=== PATIENT | female | born 1975 | race Caucasian/White ===

== ENCOUNTER 2021-09-06 00:50 | Emergency (ER) | payer OTHER, MEDICAID, SELFPAY ==
[2021-09-06 00:52] VITALS: BP 119/95; PULSE 83; RESP 16; TEMP 36.8; O2SAT 98; BMI 49.7
--- NOTE | 2021-09-06 01:15 | CT_ITS ---
EXAM: CT Angiography Chest Without and With Intravenous Contrast CLINICAL INDICATION: 46 years old, Female; chest pain TECHNIQUE: Helically acquired angiography images were obtained of the chest without and with intravenous contrast. This CT exam was performed using one or more of the following dose reduction techniques: automated exposure control, adjustment of the mA and/or kV according to patient size, and/or use of iterative reconstruction technique. This report was created using [employer] report generation technology. MIP reconstructed images were created and reviewed. CONTRAST: IV 100mL Isovue-370 COMPARISON: None. FINDINGS: Pulmonary arteries: Unremarkable. Normal in caliber. No pulmonary embolism. Aorta: Unremarkable. Normal in caliber. No evidence of dissection. Great vessels of aortic arch: Unremarkable. Normal in caliber. No evidence of dissection. Lungs and pleural spaces: Unremarkable. No mass. No consolidation or edema. No pleural effusion or thickening. No pneumothorax. Heart: Unremarkable. Heart size is normal. No pericardial effusion. No signs of right heart strain, ratio of right ventricle to left ventricle measures less than 1. Mediastinum: Unremarkable. No mediastinal or hilar adenopathy. Esophagus is unremarkable. No hiatal hernia. Thyroid: Unremarkable. No thyroid lesions. Bones/joints: Unremarkable. No suspicious lytic or blastic abnormality. CT/CTA Chest W/WO Contrast IMPRESSION: No pulmonary embolism. Electronically Signed: Apollo Machado MD at 3:27 EDT ,
--- NOTE | 2021-09-06 01:17 | EKG12_ITS ---
Test Reason : FLANK PAIN Blood Pressure : / mmHG Vent. Rate : 070 BPM Atrial Rate : 070 BPM P-R Int : 180 ms QRS Dur : 086 ms QT Int : 440 ms P-R-T Axes : 064 047 031 degrees QTc Int : 475 ms Normal sinus rhythm Normal ECG Confirmed by SHERRIE DAHL, SHAYY ([id number]), deputy editor in chief REJI SOTO ([id number]) on 09/09/2021 11:09:13 AM Referred By: Confirmed By:SHAYY BALDERAS MD
--- NOTE | 2021-09-06 01:22 | EDS_ITS ---
HPI History of Present Illness Chief Complaint: Flank Pain Narrative Narrative: Patient is a 46-year-old female who presents ER complaining of right back/flank pain. She states that she was at work yesterday and she had a migraine and was slumping over a chair secondary to this. She states after this she noticed some pain in her right upper back. She states as time is past the migraine resolved but the pain in her back has continued to worsen. She states there has been no excessive activity or trauma. She reports that she is taken her gabapentin and Flexeril without any symptom. She states the pain is more sharp in nature and does not improve or worsen with any type of motion. She states that she now feels like the pain is radiating towards the chest and secondary to its persistent nature and the fact is not improving she presents for evaluation. [facility] Medical History Arthritis Depression with anxiety Hypertension Spondyloarthritis Home Medications buspirone mg 09/06/21 [History Last Taken Unknown] cephalexin 500 mg PO BID 5 Days #10 cap 09/06/21 [Rx Last Taken Unknown] gabapentin [Neurontin] 100 mg PO DAILY 09/06/21 [History Last Taken Unknown] losartan 09/06/21 [History Last Taken Unknown] methocarbamol 1,000 mg PO 4X/DAY PRN PRN #56 tab 09/06/21 [Rx Last Taken Unknown] Allergy/AdvReac Type Severity Reaction Status Date / Time lisinopril Allergy Chest Verified 09/06/21 01:01 tightness Social History Smoking Status: Never smoker [facility] ED Constitutional Constitutional ED: Denies chills or fever(s) ENT ENT ED: Denies sore throat Cardiovascular Cardiovascular: Reports chest pain; Denies palpitations or racing heartbeat Respiratory/Chest Respiratory/Chest: Denies cough or dyspnea Gastrointestinal Gastrointestinal: Denies abdominal pain, diarrhea, nausea or vomiting Genitourinary Genitourinary ED: Denies dysuria Musculoskeletal Musculoskeletal: Reports back pain; Denies myalgias Integumentary Denies rash Neurologic Neurologic: Denies headache(s) Hematologic/Lymphatic Hematologic/Lymphatic: Denies easy bleeding or easy bruising EXAM Physical Exam Const Vital Signs: 09/06/21 00:52 09/06/21 03:44 Temperature 98.3 F Temperature Source Oral Pulse Rate 83 Respiratory Rate 16 17 Blood Pressure 119/95 H Blood Pressure Mean 103 Pulse Ox 98 Oxygen Delivery Method Room Air Positive well nourished, well developed and obese General Appearance ED: well developed Nutritional Appearance: obese HEENT Reports moist mucous membranes Eyes PERRL and EOMs intact bilaterally Neck supple Chest Wall palpation of chest normal Resp normal respiratory effort and clear to auscultation bilaterally Cardio regular rate and regular rhythm Rate: other Other Details: Radial pulses are +2-4 bilaterally are equal and symmetric GI normal to inspection, nondistended, normoactive bowel sounds, non-tender, non- distended and no masses GI Narrative: No pulsatile mass or fluid wave Auscultation: normoactive bowel sounds Palpation: soft Back/Spine no CVA tenderness Back/Spine Narrative: No bony deformity or step-off of the thoracic or lumbar spine no midline pain with palpation. Patient reports pain in the right upper parathoracic muscle belly region but there is no reproducible pain on palpation and there is only slight spasm noted. No overlying soft tissue changes to suggest trauma or infection Extremity Extremity Narrative: Trace pitting edema to the bilateral lower extremities that is equal and symmetric with negative Homans' sign bilaterally Neuro oriented x3 and CN's II-XII intact bilaterally Sensorium / Orientation: alert Motor Exam: strength 5/5 throughout Psych mental status grossly normal Skin no rashes or lesions noted MDM MDM MDM Narrative Medical decision making narrative: Patient presented to the ER with stable vitals but complained of pain in the right upper back radiating into the chest. There is no obvious report of trauma or signs of trauma on exam and no obvious overlying soft tissue infection such as shingles or cellulitis to suggest a cause of her pain. She is not tachycardic or hypoxic her blood pressure is not hypertensive but based on location of the pain there is concerned that she could be having a pulmonary embolus or dissection or even cardiac event as the cause of her symptoms. Therefore I elected perform basic laboratory studies as well as a CTA of the chest. CTA revealed no acute pathology. Urine sample show +1 bacteria without contamination and also a few red blood cells. Based on the right sided upper pain there is concern this could be gallbladder related or even kidney stone as well so elected to add a CT scan of the abdomen and pelvis. This also showed no acute finding. On reevaluation the patient is resting comfortably and has had improvement of pain with medication. Therefore she does not have signs of urosepsis she does not have cardiac damage and we have ruled out underlying dissection and pulmonary embolus. Patient will be given a muscle relaxer as well as placed on a 5-day course of Keflex because of the bacteria in the urine but is otherwise safe for discharge Lab Data Attestation: I reviewed the patient's lab results. Labs: Laboratory Results - last 24 hr 09/06/21 09/06/21 09/06/21 01:30 01:30 01:30 WBC 8.6 RBC 4.21 Hgb 12.1 Hct 36.6 L MCV 86.9 MCH 28.7 MCHC 33.1 RDW Std Deviation 38.9 RDW Coeff of Winter 12.2 Plt Count 256 MPV 9.5 Immature Gran % (Auto) 0.500 Neut % (Auto) 57.1 Lymph % (Auto) 31.7 Griggs % (Auto) 7.6 Eos % (Auto) 2.6 Baso % (Auto) 0.5 Absolute Neuts (auto) 4.9 Absolute Lymphs (auto) 2.72 Nucleated RBC % 0 PT 12.5 INR 1.0 APTT 31.8 Sodium 138 Potassium 3.9 Chloride 107 Carbon Dioxide 26.0 Anion Gap 5 BUN 12 Creatinine 0.81 Estim Creat Clear Calc 81.24 Est GFR (MDRD) Af Amer 97 Est GFR (MDRD) Non-Af 80 BUN/Creatinine Ratio 14.7 Glucose 128 H Calcium 8.8 Total Bilirubin Direct Bilirubin AST ALT Alkaline Phosphatase Troponin I High Sens < 3 L Total Protein Albumin Globulin Urine Color Urine Clarity Urine pH Ur Specific [place] Urine Protein Urine Glucose (UA) Urine Ketones Urine Occult Blood Urine Nitrite Urine Bilirubin Urine Urobilinogen Ur Leukocyte Esterase Urine RBC Urine WBC Ur Squamous Epith Cells Urine Bacteria Urine Mucus Urine Test 09/06/21 09/06/21 01:30 01:30 WBC RBC Hgb Hct MCV MCH MCHC RDW Std Deviation RDW Coeff of Winter Plt Count MPV Immature Gran % (Auto) Neut % (Auto) Lymph % (Auto) Griggs % (Auto) Eos % (Auto) Baso % (Auto) Absolute Neuts (auto) Absolute Lymphs (auto) Nucleated RBC % PT INR APTT Sodium Potassium Chloride Carbon Dioxide Anion Gap BUN Creatinine Estim Creat Clear Calc Est GFR (MDRD) Af Amer Est GFR (MDRD) Non-Af BUN/Creatinine Ratio Glucose Calcium Total Bilirubin 0.50 Direct Bilirubin 0.09 AST 11 L ALT 20 Alkaline Phosphatase 74 Troponin I High Sens Total Protein 7.1 Albumin 3.5 Globulin 3.6 Urine Color Yellow Urine Clarity Clear Urine pH 7.0 Ur Specific [place] 1.010 Urine Protein Negative Urine Glucose (UA) Normal Urine Ketones Negative Urine Occult Blood 10 H Urine Nitrite Negative Urine Bilirubin Negative Urine Urobilinogen Normal Ur Leukocyte Esterase 100 H Urine RBC 0 SEEN Urine WBC 0-5 SEEN Ur Squamous Epith Cells 0-5 SEEN Urine Bacteria 1+ Urine Mucus 0 SEEN Urine Test Negative Radiography Diagnostic Testing: Clinical Impression(s) from Imaging Studies Chest CTA 09/06/21 01:15 IMPRESSION: No pulmonary embolism. Electronically Signed: Apollo Machado MD at 3:27 EDT , Abdomen/Pelvis CT 09/06/21 02:43 IMPRESSION: Negative CT of the abdomen and pelvis with intravenous contrast. Electronically Signed: Apollo Machado MD at 3:23 EDT , Discharge Plan Triage Chief Complaint: Flank Pain ED Provider: Morales Rashid Dx/Rx/DC Orders Clinical Impression: Acute thoracic myofascial strain, UTI (urinary tract infection) Instructions: Urinary Tract Infections in Women, ED Back Sprain/Strain Prescriptions: New cephalexin 500 mg capsule 500 mg PO BID 5 Days Qty: 10 RF: 0 methocarbamol 500 mg tablet 1,000 mg PO 4X/DAY PRN PRN (Reason: Muscle pain/spasm) Qty: 56 RF: 0 No Action losartan 50 mg tablet RF: 0 buspirone 5 mg tablet RF: 0 gabapentin [Neurontin] 100 mg capsule 100 mg PO DAILY RF: 0 Primary Care Provider: Care Physician,No Primary Referrals: Altagracia Echevarria, [STAFF PHYSICIAN] - 1 Week if not improving Care Physician,No Primary [Primary Care Provider] - Disposition Disposition: Home, Self Care Discharge Date/Time: 09/06/21 03:51
[2021-09-06] MEDS: Morphine 4 MG/ML Syringe IV (01:23)
[2021-09-06] MEDS: Ondansetron 4 MG/2 ML Vial IV (01:23)
[2021-09-06] MEDS: 0.9% Normal Saline 1,000 ML 999 ML IV (01:23)
[2021-09-06 01:36] LABS: Mucous, Urine 0 SEEN /hpf (<or=2+); Red Blood Cells-Urine 0 SEEN /hpf (0-5)
[2021-09-06 01:38] LABS: Absolute Lymphocyte Count 2.72 X10^3/uL (0.83-4.51); Absolute Neutrophil Count 4.9 X10^3/uL (2.0-7.7); Basophil# 0.04 X10^3/uL; Basophil% 0.5 % (0-1); Eosinophil# 0.22 X10^3/uL; Eosinophils% 2.6 % (0-5); Hematocrit 36.6 % (37-47); Hemoglobin 12.1 g/dL (12.0-15.0); Lymphocyte # 2.72 X10^3/ul (0.83-4.51); Lymphocyte % 31.7 % (19-41); Mean Corp Hgb Conc 33.1 g/dL (32-36); Mean Corpuscular Hgb 28.7 pg (27.0-32.0); Mean Corpuscular Volume 86.9 fL (81-99); Mean Platelet Vol. 9.5 fl (6.2-12.0); Monocyte# 0.65 X10^3/uL; Monocyte% 7.6 % (0-10); NRBC Flagged by Analyzer 0 % (0-5); Neutrophil # 4.91 X10^3/uL (2.7-7.7); Neutrophil % 57.1 % (47-70); Platelet Count 256 K/mm3 (150-450); RBC Distribution Width CV 12.2 % (11.6-14.6); RBC Distribution Width SD 38.9 fl (35.1-43.9); Red Blood Count 4.21 M/mm3 (4.2-5.4); White Blood Count 8.6 K/mm3 (4.4-11.0)
[2021-09-06 01:42] LABS: Color, Urine Yellow (Yellow); Glucose, Dipstick Normal (Normal); Ketone-Dipstick Negative (Negative); Leukocyte Esterase-Dipstick 100 /ul (Negative); Nitrite-Dipstick Negative (Negative); Occult Blood-Urine 10 /ul (Negative); Protein-Dipstick Negative (Negative); Urine Bilirubin Dipstick Negative (Negative); Urine Clarity Clear (Clear); Urine Urobilinogen Normal (Normal)
[2021-09-06 01:46] LABS: Internal QC Validated? YES +Cl - CLEAR BKGD; Pregnancy, Urine Negative Negative; Prothrombin Time (Protime)PT. 12.5 SECONDS (11.7-14.9)
[2021-09-06 01:47] LABS: Partial Thromboplast Time 31.8 Seconds (24.1-36.2)
[2021-09-06 02:04] LABS: Bacteria 1+ /hpf (None Seen); Squamous Epithelial Cells - UA 0-5 SEEN /hpf (5-10); White Blood Cells 0-5 SEEN /hpf (0-5)
[2021-09-06 02:29] LABS: Anion Gap 5 (5-15); BUN 12 mg/dL (7-18); BUN/Creat Ratio 14.7 RATIO (10-20); Calcium,Total 8.8 mg/dL (8.5-10.1); Chloride 107 mmol/L (98-107); Creatinine, Serum 0.81 mg/dL (0.55-1.02); EST Glomerular Filtration Rate 80 mL/min (>60); Est Glom Filt Rate - Afr Amer 97 mL/min (>60); Estimated Creatinine Clearance 81.24 ml/min; Glucose 128 mg/dL (74-106); Potassium 3.9 mmol/L (3.5-5.1); Sodium Level 138 mmol/L (136-145); Troponin-I HS < 3 pg/mL (3.0-54.0)
--- NOTE | 2021-09-06 02:43 | CT_ITS ---
EXAM: CT Abdomen and Pelvis With Intravenous Contrast CLINICAL INDICATION: 46 years old, Female; abd pain TECHNIQUE: Helically acquired images were obtained of the abdomen and pelvis with intravenous contrast. This CT exam was performed using one or more of the following dose reduction techniques: automated exposure control, adjustment of the mA and/or kV according to patient size, and/or use of iterative reconstruction technique. This report was created using [employer] report generation technology. CONTRAST: IV 100mL Isovue-370 COMPARISON: None. FINDINGS: Lower thorax: Unremarkable. Lung bases are clear. No cardiomegaly. No significant pericardial effusion. ABDOMEN: Liver: Unremarkable. Homogeneous. No focal mass. Gallbladder and bile ducts: Unremarkable. No calcified gallstones. No gallbladder distention or wall edema. No intra- or extrahepatic biliary ductal dilation. Pancreas: Unremarkable. No focal cystic or solid mass. Spleen: Unremarkable. Normal size without focal cystic or solid mass. Adrenals: Unremarkable. No nodules. Kidneys and ureters: Unremarkable. Normal renal size and position. No hydronephrosis. Stomach and bowel: Unremarkable. No stomach or bowel distention. No focal inflammatory change. PELVIS: Appendix: Normal appendix. Bladder: Unremarkable. Reproductive: Unremarkable as visualized. No mass. ABDOMEN and PELVIS: Intraperitoneal space: Unremarkable. No ascites or other fluid collection. No free air. Bones/joints: Unremarkable. No suspicious lytic or blastic abnormality. Soft tissues: Unremarkable. No discrete abdominal or pelvic wall hernia. Vasculature: Unremarkable. Abdominal aorta is non-dilated. Lymph nodes: Unremarkable. No enlarged lymph nodes. CT/Abdomen/Pelvis W IV Cont ONLY IMPRESSION: Negative CT of the abdomen and pelvis with intravenous contrast. Electronically Signed: Apollo Machado MD at 3:23 EDT ,
[2021-09-06] MEDS: HYDROmorphone 0.5 MG/0.5 ML SYRINGE IV (02:54)
[2021-09-06 03:03] LABS: AST(SGOT) 11 U/L (15-37); Alanine Aminotransfer ALT/SGPT 20 U/L (13-56); Albumin, Serum 3.5 g/dL (3.2-5.0); Alkaline Phosphatase 74 U/L (45-117); Bilirubin, Direct 0.09 mg/dL (0.00-0.30); Globulin 3.6 g/dL (2.2-4.2); Protein, Total 7.1 g/dL (6.4-8.2)
[2021-09-06 03:44] VITALS: RESP 17
== END 2021-09-06 03:51 | disposition home or self-care (01) ==
PROVIDERS: Emergency Provider Emergency Medicine; Visit Provider Emergency Medicine
DX: N39.0 Urinary tract infection, site not specified (principal); S29.019A Strain of muscle and tendon of unspecified wall of thorax, initial encounter; I10 Essential (primary) hypertension; F32.A Depression, unspecified; F41.9 Anxiety disorder, unspecified; X50.1XXA Overexertion from prolonged static or awkward postures, initial encounter; Y99.0 Civilian activity done for income or pay; Y92.59 Other trade areas as the place of occurrence of the external cause; R07.9 Chest pain, unspecified
CPT/HCPCS: 71275; 74177; 80048; 80076; 81001; 81025; 84484; 85025; 85610; 85730; 93005; 96361; 96374; 96375; 99283; J7030; Q9967; A4216; J2405

== ENCOUNTER 2024-07-10 08:25 | Emergency (ER) | payer OTHER, SELFPAY ==
[2024-07-10 08:26] VITALS: BP 91/48; PULSE 78; RESP 16; TEMP 36.1; O2SAT 100; BMI 27.2
--- NOTE | 2024-07-10 08:48 | EX.ED.DYSGE1 ---
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 She did not fall or injure herself. She has had very poor p.o. food and fluid intake due to poor appetite over the past couple days she states she has been drinking fluids but feels dehydrated like she needs IV fluids. Her son has been ill with some similar symptoms lately, did not get tested. She has patient contact. [facility] Medical History Spondyloarthritis Arthritis Depression with anxiety Hypertension Home Medications ?Medication ?Instructions ?Recorded ?Last Taken ?Type buspirone 5 mg tablet mg 09/06/21 Unknown History cephalexin 500 mg capsule 500 mg PO BID 5 days #10 caps 09/06/21 Unknown Rx gabapentin 100 mg capsule 100 mg PO DAILY 09/06/21 Unknown History (Neurontin) losartan 50 mg tablet 09/06/21 Unknown History methocarbamol 500 mg tablet 1,000 mg (2 x 500 mg) PO 4X/DAY 09/06/21 Unknown Rx PRN PRN Muscle pain/spasm #56 tabs Allergy/AdvReac Type Severity Reaction Status Date / Time lisinopril Allergy Chest Verified 07/10/24 08:25 tightness Social History Smoking Status: Former smoker ROS ROS ED Constitutional Constitutional ED: Reports anorexia, body ache(s), chills, fever(s), malaise and subjective Eyes Eyes: Denies change in vision or diplopia ENT ENT ED: Reports ear pain bilateral, headache(s), nasal congestion, rhinorrhea and sore throat Cardiovascular Cardiovascular: Denies chest pain or palpitations Respiratory/Chest Respiratory/Chest: Reports cough; Denies dyspnea Gastrointestinal Gastrointestinal: Reports diarrhea; Denies abdominal pain, nausea or vomiting Genitourinary Genitourinary ED: Denies dysuria or hematuria Musculoskeletal Musculoskeletal: Denies back pain or neck pain Integumentary Denies abscess or rash Neurologic Neurologic: Reports headache(s); Denies paresthesias or weakness EXAM Physical Exam Const Vital Signs: 07/10/24 08:26 07/10/24 10:25 07/10/24 11:31 Temperature 96.9 F L Temperature Source Temporal Pulse Rate 78 Pulse Rate [Lying] 67 Pulse Rate [Sitting (for 1 minute prior to obtaining)] 64 Pulse Rate [Standing (for 1 minute prior to obtaining)] 80 Respiratory Rate 16 Blood Pressure 91/48 L 90/49 L Blood Pressure [Lying] 104/65 Blood Pressure [Sitting (for 1 minute prior to obtaining)] 103/63 Blood Pressure [Standing (for 1 minute prior to obtaining)] 102/63 Blood Pressure Mean 62 62 Blood Pressure Mean [Lying] 78 Blood Pressure Mean [Sitting (for 1 minute prior to obtaining)] 76 Blood Pressure Mean [Standing (for 1 minute prior to obtaining)] 76 Pulse Ox 100 Oxygen Delivery Method Room Air 07/10/24 12:00 Temperature Temperature Source Pulse Rate 70 Pulse Rate [Lying] Pulse Rate [Sitting (for 1 minute prior to obtaining)] Pulse Rate [Standing (for 1 minute prior to obtaining)] Respiratory Rate Blood Pressure 104/63 Blood Pressure [Lying] Blood Pressure [Sitting (for 1 minute prior to obtaining)] Blood Pressure [Standing (for 1 minute prior to obtaining)] Blood Pressure Mean 76 Blood Pressure Mean [Lying] Blood Pressure Mean [Sitting (for 1 minute prior to obtaining)] Blood Pressure Mean [Standing (for 1 minute prior to obtaining)] Pulse Ox Oxygen Delivery Method Positive well nourished and well developed General Appearance ED: well developed and NAD HEENT Reports moist mucous membranes HEENT Narrative: Posterior pharynx clear. TMs normal bilaterally. normocephalic and atraumatic Eyes PERRL and EOMs intact bilaterally Neck full ROM, no lymphadenopathy and supple Resp normal respiratory effort and clear to auscultation bilaterally Cardio regular rate, regular rhythm and no murmurs GI non-tender and non-distended Auscultation: normoactive bowel sounds Palpation: soft Back/Spine no CVA tenderness General Back: other FROM Extremity normal to inspection General Extremety ED: Negative for edema, pulses abnormal or tenderness General Extremity: Negative for edema or pulses abnormal Neuro oriented x3, CN's II-XII intact bilaterally and no sensory deficits noted Sensorium / Orientation: awake and alert Motor Exam: strength 5/5 throughout Psych mental status grossly normal Skin no rashes or lesions noted and no wounds MDM MDM MDM Narrative Medical decision making narrative: Labs obtained, she is not really to prerenal, but she was given IV fluids mostly because of her orthostasis and her borderline hypotension at 91/48, after Toradol, IV fluids, Zofran she is feeling better and her blood pressure is better. Her potassium is low, she was given some oral replacement she states she had gastric bypass her potassium is chronically low, so I do not think we need to give her more replacement than that. Her swab was positive for influenza A consistent with her symptoms. Given work note, she is doing better now, recommended supportive care. Although orthostatics were negative she was to lightheaded when she stood up to give her some IV fluids prior to discharge and then she was feeling better Lab Data Attestation: I reviewed the patient's lab results. Labs: Laboratory Results - last 24 hr 07/10/24 09:00 WBC 3.5 L RBC 4.26 Hgb 13.2 Hct 38.6 MCV 90.6 MCH 31.0 MCHC 34.2 RDW Std Deviation 39.4 RDW Coeff of Winter 11.9 Plt Count 137 L MPV 10.6 Immature Gran % (Auto) 0.300 Neut % (Auto) 66.5 Lymph % (Auto) 19.3 [place] % (Auto) 12.7 H Eos % (Auto) 0.6 Baso % (Auto) 0.6 Absolute Neuts (auto) 2.4 Absolute Lymphs (auto) 0.68 L Nucleated RBC % 0 Sodium 138 Potassium 3.2 L Chloride 107 Carbon Dioxide 24.0 Anion Gap 7 BUN 15 Creatinine 1.00 Estim Creat Clear Calc 71.17 Est GFR (MDRD) Af Amer 76 Est GFR (MDRD) Non-Af 63 BUN/Creatinine Ratio 15.0 Glucose 115 H Calcium 9.0 Discharge Plan Triage Chief Complaint: Nausea/Vomiting/Diarrhea ED Provider: Christopher Hayes Dx/Rx/DC Orders Clinical Impression: Influenza A, Hypokalemia due to excessive gastrointestinal loss of potassium, Orthostatic syncope, Mild dehydration Instructions: ED Influenza (Adult), ED Hypokalemia Prescriptions: No Action losartan 50 mg tablet buspirone 5 mg tablet Patient Comments: TAKE 1 TABLET BY MOUTH ONCE DAILY gabapentin [Neurontin] 100 mg capsule 100 mg PO DAILY Patient Comments: TAKE 1 CAPSULE BY MOUTH EVERY 8 HOURS cephalexin 500 mg capsule 500 mg PO BID 5 Days Qty: 10 0RF methocarbamol 500 mg tablet 1,000 mg PO 4X/DAY PRN PRN (Reason: Muscle pain/spasm) Qty: 56 0RF Stand Alone Forms: ED Work / School Excuse Primary Care Provider: Sybil Espinal NP Referrals: Doctor,Your [Non-Staff] - 1 Week if not improving Print Language: Kosovan Disposition Disposition: Home, Self Care
[2024-07-10] MEDS: Ketorolac 30 MG/ML Syringe IV (09:01)
[2024-07-10] MEDS: 0.9% Normal Saline (1000mL) 1,000 ML 999 ML IV (09:01)
[2024-07-10 09:21] LABS: Absolute Lymphocyte Count 0.68 X10^3/uL (0.83-4.51); Absolute Neutrophil Count 2.4 X10^3/uL (2.0-7.7); Basophil# 0.02 X10^3/uL; Basophil% 0.6 % (0-1); Eosinophil# 0.02 X10^3/uL; Eosinophils% 0.6 % (0-5); Hematocrit 38.6 % (37-47); Hemoglobin 13.2 g/dL (12.0-15.0); Lymphocyte # 0.68 X10^3/ul (0.83-4.51); Lymphocyte % 19.3 % (19-41); Mean Corp Hgb Conc 34.2 g/dL (32-36); Mean Corpuscular Volume 90.6 fL (81-99); Mean Platelet Vol. 10.6 fl (6.2-12.0); Monocyte# 0.45 X10^3/uL; Monocyte% 12.7 % (0-10); NRBC Flagged by Analyzer 0 % (0-5); Neutrophil # 2.35 X10^3/uL (2.7-7.7); Neutrophil % 66.5 % (47-70); Platelet Count 137 K/mm3 (150-450); RBC Distribution Width CV 11.9 % (11.6-14.6); RBC Distribution Width SD 39.4 fl (35.1-43.9); Red Blood Count 4.26 M/mm3 (4.2-5.4); White Blood Count 3.5 K/mm3 (4.4-11.0)
[2024-07-10 09:25] LABS: Anion Gap 7 (5-15); BUN 15 mg/dL (7-18); Chloride 107 mmol/L (98-107); EST Glomerular Filtration Rate 63 mL/min (>60); Est Glom Filt Rate - Afr Amer 76 mL/min (>60); Estimated Creatinine Clearance 71.17 ml/min; Glucose 115 mg/dL (74-106); Potassium 3.2 mmol/L (3.5-5.1); Sodium Level 138 mmol/L (136-145)
[2024-07-10 10:25] VITALS: BP 90/49
[2024-07-10] MEDS: Potassium Chloride Oral Tablet 20 MEQ 40 MEQ PO (10:40)
[2024-07-10 11:31] VITALS: BP 102/63; BP 103/63; BP 104/65; PULSE 64; PULSE 67; PULSE 80
[2024-07-10] MEDS: 0.9% Normal Saline (500mL Bag) 500 ML 999 ML IV (11:52)
[2024-07-10 12:00] VITALS: BP 104/63; PULSE 70
[2024-07-10 14:29] VITALS: BP 109/54; PULSE 60; RESP 18; O2SAT 98
== END 2024-07-10 14:43 | disposition home or self-care (01) ==
PROVIDERS: Emergency Provider Emergency Medicine; PCP Nurse Practitioner Family; Visit Provider Emergency Medicine
DX: J10.1 Influenza due to other identified influenza virus with other respiratory manifestations (principal); R55 Syncope and collapse; E87.6 Hypokalemia; R11.2 Nausea with vomiting, unspecified; R03.1 Nonspecific low blood-pressure reading; Z87.891 Personal history of nicotine dependence; R19.7 Diarrhea, unspecified; I10 Essential (primary) hypertension; H92.03 Otalgia, bilateral; R51.9 Headache, unspecified; Z98.84 Bariatric surgery status; E86.0 Dehydration
CPT/HCPCS: 80048; 85025; 87631; 96361; 96374; 99284